=== PATIENT | female | born 1980 | race Two or more races ===

== ENCOUNTER 2024-12-05 03:34 | Emergency (ER) | payer OTHER ==
[~2024-12-05] VITALS: Ht 175.3 cm; Wt 91.6 kg
[2024-12-05 05:19] VITALS: BP 97/62; PULSE 65; RESP 18; TEMP 98.1; O2SAT 98
--- NOTE | 2024-12-05 05:33 | ED.PDOC ---
Eye-HPI HPI Comments THIS IS A 44-YEAR-OLD FEMALE PRESENTS TO THE ED CHIEF COMPLAINT FACIAL SWELLING. PATIENT STATES HAS BEEN ON ANTIBIOTICS FOR ON/OFF ONE MONTH PRESCRIBED BY THE DENTIST FOR DENTAL INFECTION SHE STATES LEFT-SIDED FACIAL SWELLING AND PAIN HAS INCREASED TO LEFT SIDE OF HER HEAD AND CHIN. TAKING HER ANTIBIOTICS PRESCRIBED. DENIES DIFFICULTY BREATHING, SHORTNESS BREATH, CHEST PAIN, FEVER OR CHILLS. Chief Complaint: Tooth Pain Time Seen by MD: 03:42 Reviewed Notes: Nurses Notes, Medications, Allergies Allergies: Coded Allergies: Amoxicillin (Verified Allergy, Unknown, 12/05/24) Cefazolin (Verified Allergy, Unknown, 12/05/24) Information Source: Patient Mode of Arrival: Ambulatory Past Medical History PAST MEDICAL HISTORY: Denies Surgical History: Denies all surgeries LIGHTING ENGINEER History: No Pertinent LIGHTING ENGINEER History Family History Family History: Reviewed,noncontributory to illness Social History Smoker: Non-Smoker Alcohol: Denies ETOH Use Drugs: Denies Drug Use Constitutional: denies: chills, diaphoresis, fatigue, fever, malaise, sweats, weakness, others EENTM: reports: others (LEFT UPPER MOUTH DENTAL PAIN); denies: blurred vision, double vision, ear bleeding, ear discharge, ear drainage, ear pain, ear ringing, eye pain, eye redness, hearing loss, mouth pain, mouth swelling, nasal discharge, nose bleeding, nose congestion, nose pain, photophobia, tearing, throat pain, throat swelling, voice changes Respiratory: denies: cough, hemoptysis, orthopnea, SOB at rest, shortness of breath, SOB with excertion, stridor, wheezing, others Cardiovascular: denies: chest pain, dizzy spells, diaphoresis, Dyspnea on exertion, edema, irregular heart beat, left arm pain, lightheadedness, palpitations, PND, syncope, others Gastrointestinal: denies: abdomen distended, abdominal pain, blood streaked bowels, constipated, diarrhea, dysphagia, difficulty swallowing, hematemesis, melena, nausea, poor appetite, poor fluid intake, rectal bleeding, rectal pain, vomiting, others Genitourinary: denies: abnormal vagina bleeding, burning, dyspareunia, dysuria, flank pain, frequency, hematuria, incontinence, pain, , vagina discharge, urgency, others Neurological: denies: dizziness, fainting, headache, left sided numbness, left sided weakness, numbness, paresthesia, pre-existing deficit, right sided numbness, right sided weakness, seizure, speech problems, tingling, tremors, wea kness, others Musculoskeletal: denies: back pain, gout, joint pain, joint swelling, muscle pain, muscle stiffness, neck pain, others Integumetry: denies: bruises, change in color, change in hair/nails, dryness, l aceration, lesions, lumps, rash, wounds, others Allergic/Immunocompromised: denies: Difficulty Healing, Frequent Infections, Hives, Itching, others Hematologic/Lymphatic: denies: anemia, blood clots, easy bleeding, easy bruising, swollen glands, others Endocrine: denies: excessive hunger, excessive sweating, excessive thirst, excessive urination, flushing, intolerance to cold, intolerance to heat, unexplained weight gain, unexplained weight loss, others Psychiatric: denies: anxiety, bipolar disorder, depression, hopeless, panic disorder, schizophrenia, sleepless, suicidal, others Physical Exam General Appearance: No Apparent Distress, Normal HEENT: Pharynx Normal, TMs Normal, Other (LEFT-SIDED FACIAL SWELLING) Neck: Full Range of Motion, Non-Tender, Normal, Normal Inspection Respiratory: Chest Non-Tender, Lungs Clear, No Accessory Muscle Use, No Respiratory Distress, Normal Breath Sounds Cardiovascular: No Edema, No JVD, No Murmur, No Gallop, Normal Peripheral Pulses, Regular Rate/Rhythm Breast Exam: Deferred Gastrointestinal: No Organomegaly, Non Tender, No Pulsatile Mass, Normal Bowel Sounds, Soft Genitalia: Deferred Pelvic: Deferred Rectal: Deferred Extremities: Normal capillary refill, Normal inspection, Normal range of motion, Non-tender, No pedal edema Musculoskeletal : Apperance: Normal Neurologic: Alert, almond blancher operator II-XII nml as Tested, No Motor Deficits, Normal Affect, Normal Mood, No Sensory Deficits Cerebellar Function: Normal Reflexes: Normal Skin: Dry, Normal Color, Warm Lymphatic: Cervical Adenopathy (L), No Adenopathy Was a procedure done? Was a procedure done?: No EENT DIFF Eye: N/A Sore Throat: Terra's Angina, Peritonsillar Abscess, Peritonsillar Cellulitis, Streptococcal X-Ray, Labs, Meds, VS Vital Signs Date Time Temp Pulse Resp B/P (MAP) Pulse Ox O2 Delivery O2 Flow Rate FiO2 12/05/24 05:19 98.1 65 18 97/62 (74) 98 98.1 12/05/24 05:19 65 18 98 Room Air 12/05/24 04:08 98.2 75 20 100/64 (76) 97 Current Medications Medications (Trade) Dose Ordered Sig/Quentin Route Start Time Stop Time Status Last Admin Ceftriaxone Sodium (Rocephin) 1,000 mg ONCE ONCE IM 12/05/24 05:45 12/05/24 05:46 DC 12/05/24 05:40 Ketorolac Tromethamine (Toradol Injection) 60 mg ONCE ONCE IM 12/05/24 05:45 12/05/24 05:46 DC 12/05/24 05:40 X-Ray, Labs, Meds, VS Comment CT MAXILLOFACIAL ORDERED RULE OUT TERRA'S ANGINA PATIENT GIVEN TORADOL 60 MG, AND ROCEPHIN 1 G Time of 1ST Reevaluation: 19:41 Reevaluation 1ST: Improved Patient Education/Counseling: Diagnosis, Treatment, Prognosis, Need For Follow Up Family Education/Counseling: No Family Present Departure 1 Departure Time of Disposition: 07:42 Disposition: 01 HOME / SELF CARE / HOMELESS Condition: Stable Discharged With: Self Critical Care Note Critical Care Time?: No ANGELA GONZALEZ Dec 05, 2024 05:33
[2024-12-05] MEDS: cefTRIAXone SOD 1,000 MG VL IM ONE (05:40)
[2024-12-05] MEDS: KETOROLAC TROMETH 60MG/2ML VIAL IM ONE (05:40)
--- NOTE | 2024-12-05 05:52 | DVH ---
CT MAXILLOFACIAL WITHOUT INDICATION: FACIAL SWELLING EXAM DATE: 12/05/2024 05:19 AM COMPARISON: None RADIATION DOSE: CTDIvol: 66.3 mGy, DLP: 1383.7 mGy*cm TECHNIQUE: Using the CT scanner, contiguous noncontrast scans were obtained from above the orbital ri ms to below the mandible. Coronal and sagittal reformatted images were then generated. All CT scans at this medical facility are performed using dose modulation techniques as appropriate t o a performed exam including the following: Automated exposure control was utilized; adjustment of th e MA and/or KV according to patient size; and use of iterative reconstruction technique. FINDINGS: Small mucosal retention cyst in the right maxillary sinus. The paranasal sinuses appear otherwise cl ear without air-fluid level or erosion. Nasal septum is not deviated. Parapharyngeal soft tissues as visualized appear unremarkable. Focal soft tissue estimated 2.1 x 0.8 cm just ventral to the right pa rotid gland with similar attenuation to parotid tissue favors accessory parotid tissue. No significan t adenopathy. No significant fat stranding. IMPRESSION: 1. Small mucosal retention cyst in the right maxillary sinus 2. Focal soft tissue estimated 2.1 x 0.8 cm just ventral to the right parotid gland with similar atte nuation to parotid tissue favors accessory parotid tissue.
== END 2024-12-05 07:24 | disposition home or self-care (01) ==
LOC: ER 03:34
DX: K08.89 Other specified disorders of teeth and supporting structures (principal); Z88.8 Allergy status to other drugs, medicaments and biological substances; Z88.6 Allergy status to analgesic agent
CPT/HCPCS: 70486; 96372; 99285; J0696; J1885

== ENCOUNTER → 2024-12-21 | Outpatient (CLI) | payer OTHER ==
[2024-12-21 12:03] LABS: T3 Total 1.06 ng/mL (0.60-1.81)
[2024-12-21 12:32] LABS: Free T4 (Free Thyroxine) 1.04 ng/dL (0.89-1.76)
== END | disposition home or self-care (01) ==
LOC: LAB 10:43
PROVIDERS: ATTEND Student in an Organized Health Care Education/Training Program
DX: E03.8 Other specified hypothyroidism (principal)
CPT/HCPCS: 36415; 84439; 84443; 84480

== ENCOUNTER → 2025-01-19 | Outpatient (CLI) | payer OTHER ==
--- NOTE | 2025-01-19 12:45 | DVH ---
US US GUIDANCE FOR NEEDLE PLACEME, HISTORY: TYROID NODULE PROCEDURE: An informed consent was obtained. Limited localization ultrasound of the thyroid gland was obtained. The left neck base was prepped with chlorhexidine which was allowed to dry and draped in t he usual sterile fashion. Timeout was performed. The skin and soft tissues were infiltrated with 1% X ylocaine. With ultrasound guidance, multiple fine needle aspirate biopsies of the nodule were obtaine d using a 25 gauge Secure-cut needle. The neck was cleaned and a sterile band-aid applied. The specim ens were sent to pathology for analysis. No immediate complication was identified. FINDINGS: Limited ultrasound of the thyroid during the biopsy demonstrates biopsy needle within nodu le. IMPRESSION: Successful ultrasound biopsy of left thyroid nodule with the macrocalcification.
== END | disposition home or self-care (01) ==
LOC: XYW 11:04
PROVIDERS: ATTEND Student in an Organized Health Care Education/Training Program
DX: E04.1 Nontoxic single thyroid nodule (principal); E07.9 Disorder of thyroid, unspecified
CPT/HCPCS: 10005; 76942

== ENCOUNTER 2025-04-21 10:43 | Outpatient (CLI) | payer OTHER ==
--- NOTE | 2025-04-21 11:35 | DVH ---
US US GUIDANCE FOR NEEDLE PLACEME, HISTORY: MOLECULAR TESTING PROCEDURE: An informed consent was obtained. Limited localization ultrasound of the thyroid gland was obtained. The left neck base was prepped with chlorhexidine which was allowed to dry and draped in t he usual sterile fashion. Timeout was performed. The skin and soft tissues were infiltrated with 1% X ylocaine. With ultrasound guidance, multiple fine needle aspirate biopsies of the nodule were obtaine d using a 25 gauge Secure-cut needle. The neck was cleaned and a sterile band-aid applied. The specim ens were sent to pathology for analysis. No immediate complication was identified. FINDINGS: Hypoechoic left thyroid nodule with macrocalcification. Limited ultrasound of the thyroid d uring the biopsy demonstrates biopsy needle within nodule. IMPRESSION: Successful ultrasound FNA of left thyroid nodule.
== END 2025-04-21 17:00 | disposition home or self-care (01) ==
LOC: US 10:43
PROVIDERS: ATTEND Student in an Organized Health Care Education/Training Program
DX: E04.2 Nontoxic multinodular goiter (principal); E03.9 Hypothyroidism, unspecified; M79.7 Fibromyalgia; E66.09 Other obesity due to excess calories; Z68.31 Body mass index [BMI] 31.0-31.9, adult; Z79.890 Hormone replacement therapy; Z79.899 Other long term (current) drug therapy; Z88.1 Allergy status to other antibiotic agents; Z88.8 Allergy status to other drugs, medicaments and biological substances
CPT/HCPCS: 10005; 76942

== ENCOUNTER 2025-07-26 09:53 | Outpatient (CLI) | payer MEDICAID ==
[2025-07-26 10:13] LABS: Hematocrit 37.5 % (36.0-46.0); Hemoglobin 12.7 g/dL (12.2-16.2); Mean Corpuscular Hemoglobin 28.1 pg (28.0-32.0); Mean Corpuscular Volume 82.9 fL (80.0-100.0); Nucleated Red Blood Cells % 0.1 %
[2025-07-26 10:34] LABS: Albumin 4.2 g/dL (3.2-4.8); Alkaline Phosphatase 64 U/L (46-116); Anion Gap 8 (5-15); BUN/Creatinine Ratio 12.1 (10.0-20.0); Bilirubin, Total 0.5 mg/dL (0.2-1.0); Blood Urea Nitrogen 8 mg/dL (9-23); Calcium 8.8 mg/dL (8.7-10.4); Carbon Dioxide 27 mmol/L (20-31); Chloride 106 mmol/L (98-107); Glucose 94 mg/dL (74-106); Potassium 4.6 mmol/L (3.5-5.1); Sodium 141 mmol/L (136-145); Total Protein 7.0 g/dL (5.7-8.2)
[2025-07-26 10:35] LABS: Alanine Aminotransferase < 9 U/L (7-40)
[2025-07-26 10:39] LABS: Free T4 (Free Thyroxine) 1.03 ng/dL (0.89-1.76)
[2025-07-26 10:58] LABS: Urine Protein, UAD Negative (Negative)
== END 2025-07-26 17:00 | disposition home or self-care (01) ==
LOC: LAB 09:53
PROVIDERS: ATTEND Student in an Organized Health Care Education/Training Program
DX: E03.8 Other specified hypothyroidism (principal); R73.9 Hyperglycemia, unspecified; R03.0 Elevated blood-pressure reading, without diagnosis of hypertension
CPT/HCPCS: 36415; 80053; 81001; 83036; 84439; 84443; 84480; 85025

== ENCOUNTER 2025-09-19 14:48 | Emergency (ER) | payer MEDICAID ==
[~2025-09-19] VITALS: Ht 175.3 cm; Wt 98.9 kg
[2025-09-19] MEDS ORDERED: LIDOCAINE 1% HCL (LOCAL ANESTH.) INJ 20ML MDV ONE (15:58)
[2025-09-19] MEDS ORDERED: TETANUS-DIPTH-ACEL PERTUSSIS 0.5ML SYR Tdap IM ONE (15:58)
[2025-09-19] MEDS: TETANUS-DIPTH-ACEL PERTUSSIS 0.5ML SYR Tdap IM ONE (15:59)
[2025-09-19] MEDS: LIDOCAINE 1% HCL (LOCAL ANESTH.) INJ 20ML MDV ID ONE (16:00)
--- NOTE | 2025-09-19 16:56 | ED.PDOC ---
HPI Comments 44 y/o F, presents to the ED for CC of laceration. Patient states, she accidently cut her left 3rd and 4th fingers with a glass bottle; bleeding is controlled at this time. Patient denies numbness, tingling, or weakness. Chief Complaint: Laceration Time Seen by MD: 16:20 Reviewed Notes: Nurses Notes, Medications, Allergies Allergies: Coded Allergies: Amoxicillin (Verified Allergy, Unknown, 12/05/24) Cefazolin (Verified Allergy, Unknown, 12/05/24) Information Source: Patient Mode of Arrival: Ambulatory Severity: Moderate Severity of Laceration: Controlled Bleeding Complexity: Intermediate Timing: Days Prehospital treatment: None Laceration Location: Digit #3, Digit #4 Mechanism: Glass Laceration Length (cm): 3 Skin Type: Linear (Patient has two lacerations. The wound on the middle finger is about 1 cm and the one on the ring finger is about 2 cm. Each when had received four sutures.) Depth of Injury: Skin Tendon Injury: 0% Tender: Moderate Discharge: Bloody Erythema: Localized to Wound Edges Associated Signs and Symptoms: None Past Medical History PAST MEDICAL HISTORY: Denies Surgical History: Denies all surgeries MAINTENANCE PAINTER History: No Pertinent MAINTENANCE PAINTER History Family History Family History: Reviewed,noncontributory to illness Social History Smoker: Non-Smoker Alcohol: Denies ETOH Use Drugs: Denies Drug Use Lives In: Home Constitutional: denies: chills, diaphoresis, fatigue, fever, malaise, sweats, weakness, others EENTM: denies: blurred vision, double vision, ear bleeding, ear discharge, ear drainage, ear pain, ear ringing, eye pain, eye redness, hearing loss, mouth pain, mouth swelling, nasal discharge, nose bleeding, nose congestion, nose pain, photophobia, tearing, throat pain, throat swelling, voice changes, others Respiratory: denies: cough, hemoptysis, orthopnea, SOB at rest, shortness of breath, SOB with excertion, stridor, wheezing, others Cardiovascular: denies: chest pain, dizzy spells, diaphoresis, Dyspnea on exertion, edema, irregular heart beat, left arm pain, lightheadedness, palpitations, PND, syncope, others Gastrointestinal: denies: abdomen distended, abdominal pain, blood streaked bowels, constipated, diarrhea, dysphagia, difficulty swallowing, hematemesis, melena, nausea, poor appetite, poor fluid intake, rectal bleeding, rectal pain, vomiting, others Genitourinary: denies: abnormal vagina bleeding, burning, dyspareunia, dysuria, flank pain, frequency, hematuria, incontinence, pain, , vagina discharge, urgency, others Neurological: denies: dizziness, fainting, headache, left sided numbness, left sided weakness, numbness, paresthesia, pre-existing deficit, right sided numbness, right sided weakness, seizure, speech problems, tingling, tremors, weakness, others Musculoskeletal: denies: back pain, gout, joint pain, joint swelling, muscle pain, muscle stiffness, neck pain, others Integumetry: reports: laceration (1cm laceration to left 3rd middle phalanx full thickness, 2.5cm laceration to the left 4th middle phalanx on the ulnar side); denies: bruises, change in color, change in hair/nails, dryness, lesions, lumps, rash, wounds, others Allergic/Immunocompromised: denies: Difficulty Healing, Frequent Infections, Hives, Itching, others Hematologic/Lymphatic: denies: anemia, blood clots, easy bleeding, easy bruising, swollen glands, others Endocrine: denies: excessive hunger, excessive sweating, excessive thirst, excessive urination, flushing, intolerance to cold, intolerance to heat, unexplained weight gain, unexplained weight loss, others Psychiatric: denies: anxiety, bipolar disorder, depression, hopeless, panic disorder, schizophrenia, sleepless, suicidal, others All Other Systems: Reviewed and Negative Physical Exam General Appearance: No Apparent Distress, Normal HEENT: Normal ENT Inspection, Pharynx Normal Neck: Full Range of Motion, Non-Tender, Normal, Normal Inspection Respiratory: Chest Non-Tender, Lungs Clear, No Accessory Muscle Use, No Respiratory Distress, Normal Breath Sounds Cardiovascular: No Edema, No Murmur, No Gallop, Normal Peripheral Pulses, Regular Rate/Rhythm Breast Exam: Deferred Gastrointestinal: No Organomegaly, Non Tender, No Pulsatile Mass, Normal Bowel Sounds, Soft Genitalia: Deferred Pelvic: Deferred Rectal: Deferred Extremities: No calf tenderness, Normal capillary refill, Normal inspection, Normal range of motion, Non-tender, No pedal edema Musculoskeletal : Apperance: Normal Neurologic: Alert, front services agent II-XII nml as Tested, No Motor Deficits, Normal Affect, Normal Mood, No Sensory Deficits Cerebellar Function: Normal Reflexes: Normal Skin: Dry, Lacerations (1cm laceration to left 3rd middle phalanx full thickness, 2.5cm laceration to the left 4th middle phalanx on the ulnar side), Normal Color Lymphatic: No Adenopathy Was a procedure done? Was a procedure done?: Yes Sedation Sedation?: No Laceration Repair : Location 1cm laceration to left 3rd middle phalanx full thickness, 2.5cm laceration to the left 4th middle phalanx on the ulnar side Length 1cm Anesthetic: Lidocaine Laceration Repair Prep: Saline, Betadine Laceration Repair Wound Comple: epidermis/dermis repair Laceration Repair: Number of sutures (4 stiches to the 3rd phalanx, 4 stiches to the 4th phalanx) Informed consent obtained: Yes Risks, benefits, and alternati: Yes Differential diagnosis Generic Laceration: Laceration (to left 3rd and 4th middle phalanx ) X-Ray, Labs, Meds, VS Vital Signs Date Time Temp Pulse Resp B/P (MAP) Pulse Ox O2 Delivery O2 Flow Rate FiO2 09/19/25 17:01 98.2 65 19 136/81 (99) 100 98.2 09/19/25 14:50 98.7 76 16 148/99 100 98.7 Current Medications Medications (Trade) Dose Ordered Sig/Quentin Route Start Time Stop Time Status Last Admin Lidocaine HCl (Xylocaine 1%) 5 ml ONCE ONCE ID 09/19/25 15:45 09/19/25 15:46 DC 09/19/25 16:00 Diphtheria/ Tetanus/Acell Pertussis (Boostrix T-Dap) 0.5 ml ONCE ONCE IM 09/19/25 15:45 09/19/25 15:46 DC 09/19/25 15:59 Time of 1ST Reevaluation: 16:50 Reevaluation 1ST: Unchanged Patient Education/Counseling: Diagnosis, Treatment Family Education/Counseling: Diagnosis, Treatment Departure 1 Departure Time of Disposition: 17:27 Impression: Primary Impression: Finger laceration Disposition: 01 HOME / SELF CARE / HOMELESS Condition: Good Additional Instructions: He needs to follow up with your doctor in the next two days. If the numbness persists he will have to be referred to a hence surgeon. Feel free to return to the emergency room for any concerns. He had the area clean and dry for the next two days. Wound check in two days. Suture removal in seven days Discharged With: Self Critical Care Note Critical Care Time?: No Stability Stability form required: No Heart Score Heart Score: Heart Score Response (Comments) Value History N/A 0 EKG N/A 0 Age N/A 0 Risk Factors N/A 0 Troponin N/A 0 Total 0 I personally scribed for EMANUEL KUMAR MD ([email or web address]) on 09/19/25 at 16:56. Electronically submitted by Tamanna Benedict ([email or web address]). I personally scribed for EMANUEL KUMAR MD ([email or web address]) on 09/19/25 at 16:58. Electronically submitted by Tamanna Benedict ([email or web address]). EMANUEL KUMAR MD Sep 19, 2025 16:56
[2025-09-19 17:01] VITALS: BP 136/81; PULSE 65; RESP 19; TEMP 98.2; O2SAT 100
== END 2025-09-19 17:22 | disposition home or self-care (01) ==
LOC: ER 14:48
DX: S61.213A Laceration without foreign body of left middle finger without damage to nail, initial encounter (principal); S61.215A Laceration without foreign body of left ring finger without damage to nail, initial encounter; Z88.1 Allergy status to other antibiotic agents; Z88.0 Allergy status to penicillin; W25.XXXA Contact with sharp glass, initial encounter; Y93.89 Activity, other specified; Y92.89 Other specified places as the place of occurrence of the external cause; Y99.8 Other external cause status
CPT/HCPCS: 12002; 90471; 90715; 99283; A4649; J2003; 12001